=== PATIENT | male | born 1985 | race Caucasian/White ===

== ENCOUNTER 2020-02-25 16:01 | Emergency (ER) | payer BC, OTHER ==
--- NOTE | 2020-02-25 16:46 | EDM.PDOC ---
ED HPI GENERAL MEDICAL PROBLEM - General Chief Complaint: Skin Complaint Stated Complaint: LAW ENFORCEMENT Time Seen by Provider: 02/25/20 16:31 Source of Information: Reports: Patient, RN Notes Reviewed History Limitations: Reports: No Limitations - History of Present Illness INITIAL COMMENTS - FREE TEXT/NARRATIVE: Patient is a 34-year-old male who presents to the ED via [facility] for the evaluation of his left lower leg cellulitis. Patient is incarcerated at this time. He notes that he developed a cellulitis to his right lower leg, roughly 12 days ago, and was given a prescription for antibiotics 5 or 6 days ago. He states that these made him nauseous so he did not take anymore. He does not cannot recall the name of the medication. 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 He notes he has had 3 bouts of cellulitis. He has not had any fevers, but states he had some cold sweats the other day. He again got nauseous with the medication, but no vomiting or diarrhea. Patient has no regular care provider. - Related Data Allergies Allergy/AdvReac Type Severity Reaction Status Date / Time No Known Allergies Allergy Verified 02/25/20 16:15 Home Meds: Home Meds Ondansetron [Zofran ODT] 4 mg PO ASDIRECTED #21 tab.dis 02/25/20 [Rx] Past Medical History - Past Health History Medical/Surgical History: Denies Medical/Surgical History - Infectious Disease History Infectious Disease History: Reports: MRSA Social & Family History - Family History Family Medical History: No Pertinent Family History - Tobacco Use Tobacco Use Status *Q: Never Tobacco User - Caffeine Use Caffeine Use: Reports: None - Recreational Drug Use Recreational Drug Use: No ED ROS GENERAL - Review of Systems Review Of Systems: Comprehensive ROS is negative, except as noted in HPI. ED EXAM, SKIN/RASH Exam: See Below Exam Limited By: No Limitations General Appearance: Alert, WD/WN, No Apparent Distress Respiratory/Chest: No Respiratory Distress, Lungs Clear, Normal Breath Sounds, No Accessory Muscle Use, Chest Non-Tender Cardiovascular: Normal Peripheral Pulses, Regular Rate, Rhythm, No Murmur Peripheral Pulses: 2+: Radial (L), Radial (R), Dorsalis Pedis (L), Dorsalis Pedis (R) Extremities: Normal Range of Motion, Normal Capillary Refill, Increased Warmth (This extends from the patient's right ankle, to midway up the calf on the lateral portion of the patient's right leg), Redness (This extends from the patient's right ankle, to midway up the calf on the lateral portion of the patient's right leg) Neurological: Alert, Oriented, Normal Cognition, No Motor/Sensory Deficits Psychiatric: Normal Affect, Normal Mood Skin: Warm, Dry, Intact, No Rash, Erythema (This extends from the patient's right ankle, to midway up the calf on the lateral portion of the patient's right leg) Course - Vital Signs Last Recorded V/S: Last Vital Signs Temp 97.8 F 02/25/20 16:06 Pulse 78 02/25/20 16:06 Resp 19 02/25/20 16:06 BP 148/91 H 02/25/20 16:06 Pulse Ox 100 02/25/20 16:06 - Re-Assessments/Exams Free Text/Narrative Re-Assessment/Exam: 02/25/20 16:48 Patient presents to the ED for his ongoing cellulitis. Due to him getting nauseous, he did not want to take his oral antibiotics. I did state that he will need to take these, and we will give him some medications for nausea prior to taking the antibiotic. Patient is amenable to this plan. I did tell him this can take up to 48 hours to start working, if he does not notice much improvement in his cellulitis by Friday that he should have it looked at again for reevaluation. Patient was okay with this plan. Departure - Departure Time of Disposition: 16:44 Disposition: Home, Self-Care 01 Condition: Good Clinical Impression: Cellulitis of right lower extremity - Discharge Information *PRESCRIPTION DRUG MONITORING PROGRAM REVIEWED*: No *COPY OF PRESCRIPTION DRUG MONITORING REPORT IN PATIENT JOSI: No Prescriptions: Ondansetron [Zofran ODT] 4 mg PO ASDIRECTED #21 tab.dis Instructions: Cellulitis, Adult, [facility]kls-[facility]-Dlos Forms: ED Department Discharge Additional Instructions: You were evaluated in the ER today regarding your cellulitis. Your skin was marked around the borders of the redness, if this redness should extend 2 finger widths past this initial kathi, recommend you seek care for re- evaluation. You were already started on antibiotic, but indicated that you got nauseous with this. You have been given a medication to take prior to the antibiotic, to help with nausea so you may take your antibiotics as directed. Please note that this antibiotic will take at least 48 hours to start working appropriately. You may try to use heat/ice packs to the area to help reduce pain/swelling. You may take 500 mg Tylenol or 600 mg ibuprofen every 6 hours as needed for further pain relief. Do not exceed 4000 mg Tylenol or 3200 mg ibuprofen in a 24-hour time span. Please return to the ER at any time if your symptoms change or worsen. Sepsis Event Note (ED) - Evaluation Sepsis Screening Result: No Definite Risk - Focused Exam Vital Signs: Vital Signs Temp Pulse Resp BP Pulse Ox 02/25/20 16:06 97.8 F 78 19 148/91 H 100
== END 2020-02-25 16:58 | disposition home or self-care (01) ==
LOC: JD.ED 16:01
DX: L03.115 Cellulitis of right lower limb (principal)
CPT/HCPCS: 99283